=== PATIENT | female | born 1990 | race Caucasian/White ===

== ENCOUNTER 2021-08-23 18:31 | Inpatient (IN) | payer BC ==
[~2021-08-23] VITALS: Ht 157.5 cm; Wt 68.9 kg
[~2021-08-23 18:31] MED LIST: IBUPROFEN600 MG PO
[2021-08-23 19:19] LABS: HEMOGLOBIN 11.6 gm/dl (12.3-15.3); RED BLOOD COUNT 3.8 M/UL (4.00-5.10); WHITE BLOOD COUNT 9.5 K/UL (4.5-11.0)
[2021-08-23 19:45] LABS: BUN/CREATININE RATIO 18 (0-10)
[2021-08-24] MEDS ORDERED: IBUPROFEN600 MG PO (10:54)
[2021-08-25 05:58] LABS: HEMOGLOBIN 12.2 gm/dl (12.3-15.3)
[2021-08-25] MEDS ORDERED: BACTRIM DS TAB1 EACH PO (17:48)
[2021-08-25] MEDS ORDERED: TRANDATE 100 M100 MG PO (17:48)
== END 2021-08-25 18:04 | disposition home or self-care (01) | DRG 807 ==
LOC: GENOP 18:31 → OB 18:41
PROVIDERS: ADMIT Obstetrics & Gynecology
PROC: 10E0XZZ Delivery of Products of Conception, External Approach (ICD-10-PCS; principal; 2021-08-23)
PROC: 4A1HXCZ Monitoring of Products of Conception, Cardiac Rate, External Approach (ICD-10-PCS; 2021-08-23)
PROC: 3E033VJ Introduction of Other Hormone into Peripheral Vein, Percutaneous Approach (ICD-10-PCS; 2021-08-23)
DX: O13.4 Gestational [pregnancy-induced] hypertension without significant proteinuria, complicating childbirth (principal); Z37.0 Single live birth; Z20.822 Contact with and (suspected) exposure to COVID-19; Z3A.37 37 weeks gestation of pregnancy; Z82.49 Family history of ischemic heart disease and other diseases of the circulatory system; Z83.3 Family history of diabetes mellitus
CPT/HCPCS: 36415; 80053; 81001; 82570; 85014; 85018; 85025; 86900; 86901; 90715; J2590; J7120; U0002